=== PATIENT | female | born 1945 | race Caucasian/White ===

== ENCOUNTER 2020-08-08 12:38 | Inpatient (IN) | payer MEDICARE, OTHER ==
[~2020-08-08] VITALS: Ht 170.2 cm; Wt 93.0 kg
[2020-08-08 13:41] LABS: HEMOGLOBIN 17.3 gm/dl (12.3-15.3); RED BLOOD COUNT 5.45 M/UL (4.00-5.10); WHITE BLOOD COUNT 6.7 K/UL (4.5-11.0)
[2020-08-08 14:05] LABS: BUN/CREATININE RATIO 21 (0-10)
[2020-08-09] MEDS ORDERED: VENTOLIN HFA 66.7 GM INH (01:00)
[2020-08-09] MEDS ORDERED: CARVEDILOL3.125 MG PO (01:01)
[2020-08-09 02:38] LABS: HEMOGLOBIN 15.8 gm/dl (12.3-15.3); RED BLOOD COUNT 5.08 M/UL (4.00-5.10); WHITE BLOOD COUNT 6.8 K/UL (4.5-11.0)
[2020-08-09 02:53] LABS: BUN/CREATININE RATIO 23 (0-10)
[2020-08-09] MEDS ORDERED: ELIQUIS5 M1 PO (10:42)
--- NOTE | 2020-08-09 11:58 | NUR ---
ROOM AIR SAT 83%
== END 2020-08-09 16:44 | disposition home or self-care (01) | DRG 175 ==
LOC: ER1 12:38 → CDU 17:35 → M/S 17:35
PROVIDERS: Emergency Medicine; ADMIT Internal Medicine
PROC: B24BZZ4 Ultrasonography of Heart with Aorta, Transesophageal (ICD-10-PCS; principal; 2020-08-09)
DX: I26.99 Other pulmonary embolism without acute cor pulmonale (principal); J96.01 Acute respiratory failure with hypoxia; J98.11 Atelectasis; I10 Essential (primary) hypertension; D75.1 Secondary polycythemia; E66.9 Obesity, unspecified; F17.210 Nicotine dependence, cigarettes, uncomplicated; Z20.822 Contact with and (suspected) exposure to COVID-19; I07.1 Rheumatic tricuspid insufficiency; J45.909 Unspecified asthma, uncomplicated; J43.9 Emphysema, unspecified; Z90.49 Acquired absence of other specified parts of digestive tract; Z99.81 Dependence on supplemental oxygen; Z83.3 Family history of diabetes mellitus; Z68.32 Body mass index [BMI] 32.0-32.9, adult; Z79.01 Long term (current) use of anticoagulants
CPT/HCPCS: ECHO; 0240U; 36415; 36600; 71045; 80048; 80053; 81001; 82550; 82553; 82803; 83605; 84484; 85025; 85027; 85379; 85610; 85730; 93005; 93306; 99285; J1650; Q9967

== ENCOUNTER → 2020-11-06 | Outpatient (CLI) | payer MEDICARE, OTHER ==
[~2020-11-06] MED LIST: CARVEDILOL3.125 MG PO; ELIQUIS5 M1 PO; VENTOLIN HFA 66.7 GM INH
== END ==
LOC: RT 14:14
DX: J45.909 Unspecified asthma, uncomplicated (principal); R09.02 Hypoxemia
CPT/HCPCS: 36600; 71046; 82803

== ENCOUNTER → 2020-11-06 | Outpatient (CLI) | payer MEDICARE, OTHER | LOC: HEART 5 13:20 | DX: J45.909 Unspecified asthma, uncomplicated (principal); R94.2 Abnormal results of pulmonary function studies | CPT/HCPCS: 94060; 94729 ==

== ENCOUNTER → 2021-01-09 | Outpatient (CLI) | payer MEDICARE, OTHER | LOC: RT 17:22 | DX: R09.02 Hypoxemia (principal) | CPT/HCPCS: 36600; 82803 ==

== ENCOUNTER → 2021-05-15 | Outpatient (CLI) | payer MEDICARE, OTHER | LOC: HEART 5 15:39 | DX: J45.50 Severe persistent asthma, uncomplicated (principal); R09.02 Hypoxemia; Z99.81 Dependence on supplemental oxygen; R94.2 Abnormal results of pulmonary function studies | CPT/HCPCS: 94060; 94729; 95012 ==